=== PATIENT | female | born 1965 | race Caucasian/White ===

== ENCOUNTER 2025-04-25 09:25 | Emergency (ER) | payer OTHER ==
[~2025-04-25] VITALS: Ht 162.6 cm; Wt 128.4 kg
[~2025-04-25 09:25] MED LIST: CALCIUM 1,0001 EACH PO; ESTRACE1 MG PO; MOBIC15 MG PO; PAROXETINE HCL20 MG PO; RANITIDINE HCL75 MG PO
[2025-04-25] MEDS ORDERED: LOSARTAN POTASS50 MG PO (09:50)
[2025-04-25] MEDS ORDERED: MELOXICAM15 MG PO (09:50)
[2025-04-25] MEDS ORDERED: SULFAMETHOXAZO1 EAC1 PO (09:50)
[2025-04-25] MEDS ORDERED: DULOXETINE HCL30 MG PO (09:50)
[2025-04-25] MEDS ORDERED: METOPROLOL SUC100 MG PO (09:51)
[2025-04-25 11:40] LABS: BASOPHILS 0.7 % (0.1-1.2); EOSINOPHILS 2.9 % (0.7-5.8); LYMPHOCYTES 35.5 % (19.3-51.7); MCH 30.8 PG (25.6-32.2); MCHC 33.3 g/dL (32.2-35.5); MCV 92.5 fL (79.4-94.8); MONOCYTES 7.4 % (4.7-12.5); NEUTROPHILS 53.4 % (34.0-71.1); PLATELET COUNT 205 K/uL (182-369); RBC 4.54 M/uL (3.93-5.22)
[2025-04-25 11:47] LABS: BILIRUBIN, URINE NEGATIVE (negative); BLOOD/HGB, URINE LARGE (Negative); KETONE, URINE NEGATIVE (Negative); LEUK ESTERASE, URINE NEGATIVE (negative); NITRITE, URINE POSITIVE (negative); PH, URINE 5.5 (5-7)
[2025-04-25 11:52] LABS: EPITHELIAL CELLS, URINE 0 /lpf (0-1+)
[2025-04-25 11:53] LABS: RED BLOOD CELLS, URINE >50 /hpf (0-5)
[2025-04-25 11:57] LABS: BACTERIA, URINE 1+ /hpf (negative); CASTS, URINE NONE SEEN \\lpf; COLLECTION TYPE, URINE VOID; CRYSTALS, URINE NONE SEEN (0-1+); REFLEX CULTURE, URINE No (No)
[2025-04-25 12:00] LABS: ALBUMIN 3.4 g/dL (3.4-5.0); ALBUMIN/GLOBULIN RATIO 0.92 (1.1-2.4); ANION GAP 12.9 (7-21); BILIRUBIN, TOTAL 0.4 mg/dL (0.2-1.0); BUN/CREATININE RATIO 18.82 (6.0-28.6); CALCIUM 9.3 mg/dL (8.5-10.1); CREATININE, SERUM 0.85 mg/dL (0.55-1.02); POTASSIUM 4.9 mmol/L (3.5-5.1); PROTEIN, TOTAL 7.1 g/dL (6.4-8.2)
[2025-04-25] MEDS ORDERED: CEPHALEXIN500 M1 PO (13:18)
[2025-04-25 13:35] VITALS: BP 159/64
== END 2025-04-25 13:35 | disposition home or self-care (01) ==
LOC: ED 09:25
PROVIDERS: Emergency Medicine
DX: N30.91 Cystitis, unspecified with hematuria (principal); M19.90 Unspecified osteoarthritis, unspecified site; I10 Essential (primary) hypertension; Z79.899 Other long term (current) drug therapy; Z91.041 Radiographic dye allergy status; Z87.891 Personal history of nicotine dependence
CPT/HCPCS: 36415; 80053; 81001; 85025; 99284

== ENCOUNTER 2025-09-11 17:35 | Emergency (ER) | payer OTHER ==
[~2025-09-11] VITALS: Ht 162.6 cm; Wt 112.7 kg
[~2025-09-11 17:35] MED LIST changes: +CEPHALEXIN500 M1 PO; +DULOXETINE HCL30 MG PO; +LOSARTAN POTASS50 MG PO; +MELOXICAM15 MG PO; +METOPROLOL SUC100 MG PO; +SULFAMETHOXAZO1 EAC1 PO
--- OUTSIDE RECORDS SUMMARY | 2025-09-11 17:37 | XMS ---
PreManage Notification: [facility] [employer] Events No recent Security Events currently on file CRITERIA MET - PDMP CARE PROVIDERS DR. TARIK Brewer Clinic[facility]: Primary Care Current MD [facility] \F\ <UNAVAIL> PHONE: [phone] TARIK STEWART [facility] Current PHONE: Unknown Tramaine has no Care Guidelines for this patient. Hillary VISIT COUNT (12 MO.) 2 NATALIIA [place] TOTAL 2 NOTE: Visits indicate total known visits. ED/UCC VISIT TRACKING (12 MO.) 09/11/2025 17:36 [facility] [place] TYPE: Emergency COMPLAINT: - NAUSEA,VOMITING 04/25/2025 09:25 [facility] [place] TYPE: Emergency COMPLAINT: - URINARY PROBLEMS DIAGNOSES: - Cystitis, unspecified with hematuria - Essential (primary) hypertension - Hematuria, unspecified - Other intermodal owner operator truck driver (current) drug therapy - Personal history of nicotine dependence - Radiographic dye allergy status - Unspecified osteoarthritis, unspecified site INPATIENT VISIT TRACKING (12 MO.) No inpatient visits to display in this time frame [email or web address]
[2025-09-11] MEDS ORDERED: DULOXETINE HCL20 MG PO (18:13)
[2025-09-11] MEDS ORDERED: SODIUM CHLORIDE 0.9% 500 ML IV ONE (19:00)
[2025-09-11] MEDS ORDERED: FAMOTIDINE 20 MG/ 2 ML VIAL IV ONE (19:15)
[2025-09-11 19:26] LABS: BASOPHILS 0.3 % (0.1-1.2); EOSINOPHILS 0.8 % (0.7-5.8); LYMPHOCYTES 19.7 % (19.3-51.7); MCH 30.9 PG (25.6-32.2); MCHC 34.3 g/dL (32.2-35.5); MCV 90.2 fL (79.4-94.8); MONOCYTES 6.9 % (4.7-12.5); NEUTROPHILS 71.9 % (34.0-71.1); RBC 5.18 M/uL (3.93-5.22)
[2025-09-11 19:43] LABS: ALT (SGPT) 26.0 U/L (14-59); AST (SGOT) 25.0 U/L (15-37); GLOMERULAR FILTRATION RATE,EST 44.0 mL/min (>60); PROTEIN, TOTAL 8.4 g/dL (6.4-8.2); UREA NITROGEN 18.0 mg/dL (7-18)
[2025-09-11] MEDS ORDERED: LACTATED RINGER'S 1,000 ML IV ONE (20:30)
[2025-09-11] MEDS ORDERED: KETOROLAC TROMETHAMINE 15 MG/ML VIAL IV ONE (20:30)
[2025-09-11 21:01] LABS: LACTIC ACID, BLOOD 1.1 mmol/L (0.4-2.0)
[2025-09-11 21:37] LABS: BLOOD/HGB, URINE LARGE (Negative); KETONE, URINE SMALL (Negative); LEUK ESTERASE, URINE NEGATIVE (negative); NITRITE, URINE NEGATIVE (negative)
[2025-09-11 21:50] LABS: EPITHELIAL CELLS, URINE SQUAMOUS 1+ /lpf (0-1+); REFLEX CULTURE, URINE No (No)
[2025-09-11] MEDS ORDERED: ONDANSETRON ODT4 MG PO (23:17)
[2025-09-11] MEDS ORDERED: HYDROCODONE BIT/ACETAMINOPHEN 5/325 MG 1 TAB HOME.PACK PO ONE (23:30)
[2025-09-11] MEDS ORDERED: ONDANSETRON 4 MG HOME.PACK SL ONE (23:30)
[2025-09-12] VITALS: BP 148/72
== END 2025-09-12 00:01 | disposition home or self-care (01) ==
LOC: ED 17:35
PROVIDERS: Internal Medicine
DX: N13.2 Hydronephrosis with renal and ureteral calculous obstruction (principal); R11.2 Nausea with vomiting, unspecified; I10 Essential (primary) hypertension; G47.30 Sleep apnea, unspecified; M19.90 Unspecified osteoarthritis, unspecified site; Z79.899 Other long term (current) drug therapy; Z91.041 Radiographic dye allergy status; Z87.891 Personal history of nicotine dependence
CPT/HCPCS: 36415; 74176; 80053; 81001; 83605; 83690; 83735; 84484; 85025; 87040; 96361; 96374; 96375; 99284-25; A9270; J0696; J1885; J2405; J7040; J7121